=== PATIENT | male | born 1970 | race American Indian/Alaskan Native ===

== ENCOUNTER 2016-12-12 08:18 | Emergency (ER) | payer OTHER ==
[2016-12-12 09:55] LABS: Anion Gap 20 mmol/L; Blood Urea Nitrogen 9 mg/dL (9-20); Calcium 9.2 mg/dL (8.4-10.2); Carbon Dioxide 26 mmol/L (22-30); Chloride 98.3 mmol/L (98-107); Glucose 97 mg/dL (75-100); Potassium 3.8 mmol/L (3.6-5.0); Sodium 140 mmol/L (137-145)
[2016-12-12 10:00] LABS: Basophils % (Auto) 0.6 % (0.0-1.8); Eosinophils % (Auto) 3.8 % (0.0-4.3); Hematocrit 47.9 % (35.5-45.6); Mean Corpuscular HGB Conc 33 % (32-34); Mean Corpuscular Hemoglobin 34 pg (28-32); Mean Corpuscular Volume 102 fl (84-94); Platelet Count 201 K/mm3 (140-440); Red Blood Count 4.71 M/mm3 (3.65-5.03); Red Cell Distribution Width 13.9 % (13.2-15.2); White Blood Count 7.7 K/mm3 (4.5-11.0)
[2016-12-12] MEDS ORDERED: NORMODYNE IV ONE ×2 (11:42→12:35)
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
--- NOTE | 2016-12-12 12:44 | XRay Report ---
CERVICAL SPINE, 3 views: History: Neck pain. Findings: The vertebral bodies, disk spaces, posterior elements and prevertebral soft tissues are unremarkable. Mild to moderate degenerative disc disease is noted at C4-5 and C5-6. The dens is intact. No acute fracture or malalignment is identified. Impression: 1. No evidence for acute injury to the cervical spine.
--- NOTE | 2016-12-12 12:45 | XRay Report ---
LUMBOSACRAL SPINE, 3 VIEWS: History: Back pain Findings: The vertebral bodies, disk spaces and posterior elements are intact. No compression deformity or malalignment. The SI joints are symmetric and unremarkable. Impression: 1. No evidence for acute injury to the lumbar spine.
[2016-12-12] MEDS ORDERED: APRESOLINE IV ONE (13:15)
[2016-12-12] MEDS ORDERED: ATIVAN ONE (14:05)
[2016-12-12] MEDS ORDERED: ATIVAN IV ONE (14:08)
[2016-12-12 14:19] VITALS: BP 148/96
== END 2016-12-12 14:35 | disposition home or self-care (01) ==
LOC: ED 08:18
DX: I10 Essential (primary) hypertension (principal); M54.2 Cervicalgia; M54.5 Low back pain; Z91.14 Patient's other noncompliance with medication regimen; F17.200 Nicotine dependence, unspecified, uncomplicated; V87.7XXA Person injured in collision between other specified motor vehicles (traffic), initial encounter; Y93.89 Activity, other specified; Y99.9 Unspecified external cause status; Y92.410 Unspecified street and highway as the place of occurrence of the external cause
CPT/HCPCS: 36415; 72040; 72100; 80048; 85025; 96374; 96375; 96376; 99284; J0360; J2060

== ENCOUNTER 2017-12-23 14:28 | Emergency (ER) | payer OTHER | END 2017-12-23 14:52 | disposition left against medical advice (07) | LOC: ED 14:28 | DX: R10.9 Unspecified abdominal pain (principal); Z53.21 Procedure and treatment not carried out due to patient leaving prior to being seen by health care provider ==

== ENCOUNTER 2017-12-23 18:41 | Inpatient (IN) | payer OTHER ==
[2017-12-23 19:56] LABS: Basophils # (Auto) 0.1 K/mm3 (0.0-0.1); Basophils % (Auto) 0.6 % (0.0-1.8); Hematocrit 50.8 % (35.5-45.6); Hemoglobin 16.9 gm/dl (11.8-15.2); Lymphocytes # (Auto) 2.3 K/mm3 (1.2-5.4); Lymphocytes % (Auto) 14.1 % (13.4-35.0); Mean Corpuscular HGB Conc 33 % (32-34); Mean Corpuscular Hemoglobin 34 pg (28-32); Mean Corpuscular Volume 101 fl (84-94); Monocytes # (Auto) 0.6 K/mm3 (0.0-0.8); Monocytes % (Auto) 3.8 % (0.0-7.3); Platelet Count 316 K/mm3 (140-440); Red Blood Count 5.02 M/mm3 (3.65-5.03); Red Cell Distribution Width 14.7 % (13.2-15.2)
[2017-12-23 20:20] LABS: Alanine Aminotransferase 35 units/L (7-56); Albumin 4.4 g/dL (3.9-5); BUN/Creatinine Ratio 10; Blood Urea Nitrogen 10 mg/dL (9-20); Calcium 8.8 mg/dL (8.4-10.2); Hemolysis Index 6
[2017-12-23 20:30] LABS: Lipase 454 units/L (13-60)
[2017-12-24] MEDS ORDERED: MORPHINE IV ONE (08:39)
[2017-12-24] MEDS ORDERED: ZOFRAN IV ONE (08:39)
[2017-12-24] MEDS ORDERED: NACL 0.9% 1000 ML 1,000 ML IV ONE (08:39)
--- NOTE | 2017-12-24 08:54 | Emergency Department Report ---
ED Abdominal Pain HPI - General Chief Complaint: Abdominal Pain Stated Complaint: ABDOMINAL PAIN Time Seen by Provider: 12/24/17 08:37 Source: patient Mode of arrival: Ambulatory Limitations: No Limitations - History of Present Illness Initial Comments: Mr. Viramontes is a healthy 47-year-old male with history of alcohol abuse and hypertension presents with severe epigastric pain for 2 days. No previous history of pancreatitis. Gradual onset of pain. Mr. Viramontes has drink alcohol daily for several years. He drinks beer and 1 pint of liquor daily. He does get the shakes if he does not have a drink. MD Complaint: abdominal pain -: days(s) (2) Location: epigastric Radiation: none Severity: severe Severity scale (0 -10): 10 Quality: cramping, sharp, burning Consistency: constant Improves With: nothing Worsens With: nothing Associated Symptoms: nausea - Related Data Previous Rx's Medication Instructions Recorded Last Taken Type amLODIPine [Norvasc] 5 mg PO DAILY #30 tab 12/12/16 Unknown Rx Allergies Allergy/AdvReac Type Severity Reaction Status Date / Time No Known Allergies Allergy Unverified 01/17/15 10:11 ED Review of Systems ROS: Stated complaint: ABDOMINAL PAIN Other details as noted in HPI Comment: All other systems reviewed and negative Constitutional: malaise. denies: fever Respiratory: denies: cough Cardiovascular: denies: chest pain ED Past Medical Hx - Past Medical History Hx Hypertension: Yes - Surgical History Additional Surgical History: Hernia 2012 - Social History Smoking Status: Current Every Day Smoker Substance Use Type: Alcohol - Medications Home Medications: Home Medications Medication Instructions Recorded Confirmed Last Taken Type amLODIPine [Norvasc] 5 mg PO DAILY #30 tab 12/12/16 Unknown Rx ED Physical Exam - General Limitations: No Limitations General appearance: alert, in no apparent distress, other (slight tremor in upper extremities ) - Head Head exam: Present: atraumatic, normocephalic - Eye Eye exam: Present: normal appearance - ENT ENT exam: Present: mucous membranes moist - Neck Neck exam: Present: normal inspection - Respiratory Respiratory exam: Present: normal lung sounds bilaterally. Absent: respiratory distress, wheezes, rales, rhonchi - Cardiovascular Cardiovascular Exam: Present: regular rate, normal rhythm, normal heart sounds. Absent: systolic murmur, diastolic murmur, rubs, gallop - GI/Abdominal GI/Abdominal exam: Present: soft, tenderness (epigastric), normal bowel sounds. Absent: distended, guarding, rebound - Rectal Rectal exam: Present: deferred - Extremities Exam Extremities exam: Present: normal inspection - Back Exam Back exam: Present: normal inspection - Neurological Exam Neurological exam: Present: alert, oriented X3 - Psychiatric Psychiatric exam: Present: normal affect, normal mood - Skin Skin exam: Present: warm, dry, intact, normal color. Absent: rash ED Course Vital Signs 12/23/17 19:18 Temperature 98.3 F Pulse Rate 88 Respiratory 18 Rate Blood Pressure 152/93 O2 Sat by Pulse 96 Oximetry ED Medical Decision Making - Lab Data Result diagrams: 12/23/17 19:27 12/23/17 19:27 Laboratory Results - last 24 hr 12/23/17 12/23/17 19:27 19:27 WBC 16.0 H RBC 5.02 Hgb 16.9 H Hct 50.8 H MCV 101 H MCH 34 H MCHC 33 RDW 14.7 Plt Count 316 Lymph % (Auto) 14.1 [place] % (Auto) 3.8 Eos % (Auto) 0.0 Baso % (Auto) 0.6 Lymph # 2.3 [place] # 0.6 Eos # 0.0 Baso # 0.1 Seg Neutrophils % 81.5 H Seg Neutrophils # 13.1 H Sodium 145 Potassium 3.7 Chloride 96.9 L Carbon Dioxide 22 Anion Gap 30 BUN 10 Creatinine 1.0 Estimated GFR > 60 BUN/Creatinine Ratio 10 Glucose 78 Calcium 8.8 Total Bilirubin 0.20 AST 41 H ALT 35 Alkaline Phosphatase 90 Total Protein 8.1 Albumin 4.4 Albumin/Globulin Ratio 1.2 Lipase 454 H Vital Signs - 24 hr 12/23/17 19:18 Temperature 98.3 F Pulse Rate 88 Respiratory 18 Rate Blood Pressure 152/93 O2 Sat by Pulse 96 Oximetry - Medical Decision Making Mr. Viramontes will be admitted for alcohol pancreatitis to the hospitalist service Critical care attestation.: If time is entered above; I have spent that time in minutes in the direct care of this critically ill patient, excluding procedure time. ED Disposition Clinical Impression: Acute alcoholic pancreatitis, Acute epigastric pain Disposition: OP ADMIT IP TO THIS HOSP Is pt being admited?: Yes Does the pt Need Aspirin: No Condition: Stable Time of Disposition: 08:54
[2017-12-24] MEDS ORDERED: CATAPRES PO ONE (09:20)
--- NOTE | 2017-12-24 09:25 | Progress Note ---
Hospitalist Physical - Constitutional Vitals: Temp Pulse Resp BP Pulse Ox 98.3 F 94 H 20 188/118 95 12/23/17 19:18 12/24/17 09:15 12/24/17 09:15 12/24/17 09:15 12/24/17 09:15 Results - Labs CBC & Chem 7: 12/23/17 19:27 12/23/17 19:27 Labs: Laboratory Last Values WBC 16.0 K/mm3 (4.5-11.0) H 12/23/17 19: RBC 5.02 M/mm3 (3.65-5.03) 12/23/17 19: Hgb 16.9 gm/dl (11.8-15.2) H 12/23/17: Hct 50.8 % (35.5-45.6) H 12/23/17: MCV 101 fl (84-94) H 12/23/17 19: MCH 34 pg (28-32) H 12/23/17: MCHC 33 % (32-34) 12/23/17 19: RDW 14.7 % (13.2-15.2) 12/23/17 19: Plt Count 316 K/mm3 (140-440) 12/23/17 19: Lymph % (Auto) 14.1 % (13.4-35.0) 12/23/17 19: [place] % (Auto) 3.8 % (0.0-7.3) 12/23/17: Eos % (Auto) 0.0 % (0.0-4.3) 12/23/17: Baso % (Auto) 0.6 % (0.0-1.8) 12/23/17 19: Lymph # 2.3 K/mm3 (1.2-5.4) 12/23/17 19: [place] # 0.6 K/mm3 (0.0-0.8) 12/23/17 19: Eos # 0.0 K/mm3 (0.0-0.4) 12/23/17 19: Baso # 0.1 K/mm3 (0.0-0.1) 12/23/17 19: Seg Neutrophils % 81.5 % (40.0-70.0) H 12/23/17 19:27 Seg Neutrophils # 13.1 K/mm3 (1.8-7.7) H 12/23/17 19:27 Sodium 145 mmol/L (137-145) 12/23/17 19:27 Potassium 3.7 mmol/L (3.6-5.0) 12/23/17 19:27 Chloride 96.9 mmol/L (98-107) L 12/23/17 19:27 Carbon Dioxide 22 mmol/L (22-30) 12/23/17 19:27 Anion Gap 30 mmol/L 12/23/17 19:27 BUN 10 mg/dL (9-20) 12/23/17 19:27 Creatinine 1.0 mg/dL (0.8-1.5) 12/23/17 19:27 Estimated GFR > 60 ml/min 12/23/17 19:27 BUN/Creatinine Ratio 10 % 12/23/17 19:27 Glucose 78 mg/dL (75-100) 12/23/17 19:27 Calcium 8.8 mg/dL (8.4-10.2) 12/23/17 19:27 Total Bilirubin 0.20 mg/dL (0.1-1.2) 12/23/17 19:27 AST 41 units/L (5-40) H 12/23/17 19:27 ALT 35 units/L (7-56) 12/23/17 19:27 Alkaline Phosphatase 90 units/L (35-129) 12/23/17 19:27 Total Protein 8.1 g/dL (6.3-8.2) 12/23/17 19:27 Albumin 4.4 g/dL (3.9-5) 12/23/17 19:27 Albumin/Globulin Ratio 1.2 % 12/23/17 19:27 Lipase 454 units/L (13-60) H 12/23/17 19:27
[2017-12-24] MEDS ORDERED: SODIUM CHLORIDE FLUSH SYRINGE 10 ML IV PRN (09:45)
[2017-12-24] MEDS ORDERED: ZOFRAN IV PRN (09:45)
[2017-12-24] MEDS ORDERED: TYLENOL PO PRN (09:45)
--- NOTE | 2017-12-24 09:45 | History and Physical Report ---
History of Present Illness Date of examination: 12/24/17 Date of admission: 12/24/17 Chief complaint: Abdominal pain History of present illness: Patient is 47 yo with history of hypertension, hyperlipidemia,alcohol abuse. He presents with abdominal pain, nausea, tremors. Abdominal pain is 10/10, dull pain, located in mid and upper abdomen. Pain does not radiate. Abdominal pain worse on eating food. he also complains of nausea, but no vomiting. Patient drinks hard liquor everyday and last drink 2 days ago. he states he has been having tremors now for 1 day. In Emergency room he is diagnosed with hypertensive urgency, acute pancreatitis due to alcohol and alcohol withdrawal syndrome. Will admit to Telemetry. Past History Past Medical History: hypertension, hyperlipidemia Past Surgical History: hernia repair Social history: , lives with family, smoking (1 pack cigarettes a day), alcohol abuse (heavy alcohol use daily), full code Family history: diabetes, hypertension Medications and Allergies Allergies Allergy/AdvReac Type Severity Reaction Status Date / Time No Known Allergies Allergy Unverified 01/17/15 10:11 Home Medications Medication Instructions Recorded Confirmed Last Taken Type No Known Home Medications [No 12/24/17 12/24/17 Unknown History Reported Home Medications] Review of Systems All systems: negative (No fever) Exam - Physical Exam Narrative exam: Gen appearance: Not in acute distress, lying in bed, HEENT:Normocephalic, atraumatic Neck:supple, no JVD Lungs: Clear to auscultation bilaterally, no crackles , no wheeze Heart: S1 and S2 regular, no murmurs, rubs or gallop Abdomen: soft, mild tender epigastric and paraumbilical, normal bowel sounds Ext: No edema, no clubbing, no cyanosis. Neuro: Awake, alert, oriented x 3. tremors both hands, moves all ext Psych:Normal mood - Constitutional Vitals: Temp Pulse Resp BP Pulse Ox 98.3 F 108 H 20 188/103 95 12/23/17 19:18 12/24/17 09:32 12/24/17 09:15 12/24/17 09:32 12/24/17 09:15 Results - Labs CBC & Chem 7: 12/25/17 04:12 12/25/17 04:12 Labs: Abnormal lab results 04/01/18 04/01/18 Range/Units 19:27 19:27 WBC 16.0 H (4.5-11.0) K/mm3 Hgb 16.9 H (11.8-15.2) gm/dl Hct 50.8 H (35.5-45.6) % MCV 101 H (84-94) fl MCH 34 H (28-32) pg Seg Neutrophils % 81.5 H (40.0-70.0) % Seg Neutrophils # 13.1 H (1.8-7.7) K/mm3 Chloride 96.9 L (98-107) mmol/L AST 41 H (5-40) units/L Lipase 454 H (13-60) units/L Assessment and Plan Acute alcoholic pancreatitis. Admit to Telemetry. NPO iv Fluids Lipase level 454. Repeat in am CT Abd ordered, pending Alocohol withdrawal syndrome. [facility] protocol Metoprolol iv Q 6h Alcohol abuse and dependence. Hypertensive urgency. Clonidine 0.2 mg po now. Metoprolol iv q 6h. May start oral meds tomorrow if pancreatitis improved. Patient admits to be non compliant, and has not taken anti-hypertensive in yrs, Hyperlipidemia. Recheck Medical non compliance. has not taken antihypertensives or statins in many years. I discussed with him the importance of taking his meedications DVT prophylaxis with Heparin Full code status
[2017-12-24] MEDS ORDERED: HALDOL IV PRN (09:47)
[2017-12-24] MEDS ORDERED: ATIVAN IV PRN ×2 (09:47)
--- NOTE | 2017-12-24 10:28 | Cat Scan Report ---
CT ABDOMEN PELVIS WITH CONTRAST: HISTORY: Abdominal pain, elevated lipase, leukocytosis. COMPARISON: none. TECHNIQUE: Helical CT in 1.25mm intervals following IV contrast. Sagittal and coronal reconstructions. FINDINGS: Lung bases: Normal. Liver: Normal. Biliary system: Normal. Pancreas: The pancreas is edematous but no evidence for abnormal enhancement, mass or cyst. Spleen: Normal. Kidneys/ureters/bladder: Normal. Adrenal glands: Normal. Aorta: Normal. Intestines: Unremarkable given no oral contrast was administered. Appendix: Normal. Pelvic viscera: Normal. Ascites: There is moderate ascites surrounding the pancreatic bed and within the pelvis. Adenopathy: None. Musculoskeletal: Normal. IMPRESSION: Findings consistent with acute pancreatitis.
[2017-12-24] MEDS: SODIUM CHLORIDE FLUSH SYRINGE 10 ML IV SCH ×2 (10:53→22:33)
[2017-12-24] MEDS: ATIVAN IV PRN (10:54)
[2017-12-24] MEDS: MORPHINE IV PRN ×3 (10:55→22:35)
[2017-12-24] MEDS: D5/0.45NS 1,000 ML IV SCH ×2 (10:56→22:33)
[2017-12-24] MEDS ORDERED: LOPRESSOR IV SCH (12:00)
[2017-12-24] MEDS ORDERED: MAGNESIUM SULFATE 3 GM in NACL 0.9% 100 ML IV ONE (12:00)
[2017-12-24 16:11] LABS: Bilirubin,Urine NEG (Negative); Blood,Urine MOD (Negative); Color,Urine Yellow (Yellow); Mucus,Urine FEW /HPF; Urobilinogen,Urine < 2.0 mg/dL (<2.0)
[2017-12-24 16:20] LABS: Amphetamine Screen,Urine PRESUMPTIVE NEGATIVE; Benzodiazepines Screen,Urine PRESUMPTIVE NEGATIVE; Cannabinoid Screen,Urine PRESUMPTIVE NEGATIVE; Methadone Screen,Urine PRESUMPTIVE NEGATIVE
[2017-12-24 16:34] LABS: Cocaine Screen,Urine PRESUMPTIVE POSITIVE; Opiate Screen,Urine PRESUMPTIVE POSITIVE
[2017-12-24] MEDS: LOPRESSOR IV SCH ×2 (17:05→22:33)
[2017-12-25] MEDS: ATIVAN IV PRN ×2 (02:18→05:29)
[2017-12-25 04:57] LABS: Basophils % (Auto) 0.1 % (0.0-1.8); Eosinophils # (Auto) 0.1 K/mm3 (0.0-0.4); Eosinophils % (Auto) 0.5 % (0.0-4.3); Hematocrit 45.4 % (35.5-45.6); Hemoglobin 15.6 gm/dl (11.8-15.2); Lymphocytes # (Auto) 0.9 K/mm3 (1.2-5.4); Lymphocytes % (Auto) 7.8 % (13.4-35.0); Mean Corpuscular HGB Conc 34 % (32-34); Mean Corpuscular Hemoglobin 34 pg (28-32); Mean Corpuscular Volume 99 fl (84-94); Monocytes # (Auto) 0.6 K/mm3 (0.0-0.8); Monocytes % (Auto) 4.7 % (0.0-7.3); Platelet Count 182 K/mm3 (140-440); Red Blood Count 4.57 M/mm3 (3.65-5.03); Red Cell Distribution Width 14.2 % (13.2-15.2)
[2017-12-25 05:04] LABS: BUN/Creatinine Ratio 10; Blood Urea Nitrogen 8 mg/dL (9-20); Calcium 8.5 mg/dL (8.4-10.2); Hemolysis Index 37
[2017-12-25 05:13] LABS: Lipase 259 units/L (13-60)
[2017-12-25] MEDS: LOPRESSOR IV SCH (05:29)
[2017-12-25] MEDS ORDERED: APRESOLINE IV PRN (05:34)
[2017-12-25] MEDS: VITAMIN B-1 100 MG in NACL 0.9% 50 ML IV SCH (11:00)
[2017-12-25] MEDS: FOLVITE 1 MG in NACL 0.9% 50 ML IV SCH (11:00)
[2017-12-25] MEDS: SODIUM CHLORIDE FLUSH SYRINGE 10 ML IV SCH ×2 (11:00→22:56)
[2017-12-25] MEDS: MORPHINE IV PRN ×2 (11:52→20:45)
[2017-12-25] MEDS: D5/0.45NS 1,000 ML IV SCH (14:18)
[2017-12-25] MEDS: HEPARIN SUB-Q SCH ×2 (14:18→22:55)
[2017-12-25] MEDS ORDERED: CATAPRES PO PRN (14:49)
--- NOTE | 2017-12-25 14:52 | Progress Note ---
Assessment and Plan Acute alcoholic pancreatitis. Lipase level was elevated to 454. CT Abd ordered and persistent with pancreatitis, Continue IV fluid hydration, start on clear liquid diet Trend lipase /Alocohol withdrawal syndrome. Continue CIWA protocol Placed on Metoprolol iv Q 6h on admission will place on clonidine by mouth q8h, stop metoprolol /Alcohol abuse and dependence. Counseled for cessation /Hypertensive urgency. Adjust medications as needed Required IV metoprolol on admission Continue clonidine for now /Hyperlipidemia. place on statin Medical non compliance. has not taken antihypertensives or statins in many years. discussed with him the importance of taking his me in dications DVT prophylaxis with Heparin Full code status Brief history: 47-year-old -[place] male with history of alcohol abuse presented with diffuse epigastric abdominal pain nausea and vomiting. Radiological test: CT scan of the abdomen and pelvis with contrast: Findings consistent with acute pancreatitis. Hospitalist Physical exam: GENERAL: well-developed and well-nourished -[place] male lying on bed appeared to be in no discomfort. HEENT: Normocephalic. Atraumatic. No conjunctival congestion or icterus. Patient has moist mucous membranes. NECK: Supple. Trachea midline. CHEST/LUNGS: Clear to auscultated bilaterally, breathing nonlabored. No wheezes crackles or rhonchi. HEART/CARDIOVASCULAR: Regular in rate and rhythm. S1 and S2 positive. ABDOMEN: Abdomen is soft, + epigastric tenderness. Patient has normal bowel sounds. SKIN: There is no rash. Warm and dry. NEURO: No focal motor deficit. Follows command. MUSCULOSKELETAL: No joint effusion or tenderness. EXTRIMITY: No edema, no cyanosis or clubbing. PSYCH: Cooperative. Subjective Date of service: 12/25/17 Interval history: Patient seen and examined. Medical records and medication list reviewed. No acute event overnight noted by the RN. Patient denies any chest pain or difficulty breathing. Patient is tolerating clear liquid diet. Still has significant epigastric pain but no nausea vomiting Discussed plan of care at bedside with patient. Objective - Constitutional Vitals: Vital Signs - 12hr 12/25/17 12/25/17 12/25/17 05:21 05:29 07:50 Temperature 99.1 F 98.7 F Pulse Rate 100 H 100 H 98 H Respiratory 20 18 Rate Blood Pressure 157/106 Blood Pressure 151/106 141/99 [Right] O2 Sat by Pulse 96 96 Oximetry 12/25/17 10:00 Temperature Pulse Rate 96 H Respiratory Rate Blood Pressure Blood Pressure [Right] O2 Sat by Pulse Oximetry - Labs CBC & Chem 7: 12/26/17 08:07 12/25/17 04:12 Labs: Abnormal lab results 12/23/17 12/25/17 12/25/17 Range/Units 15:46 04:12 04:12 WBC 12.0 H (4.5-11.0) K/mm3 Hgb 15.6 H (11.8-15.2) gm/dl MCV 99 H (84-94) fl MCH 34 H (28-32) pg Lymph % (Auto) 7.8 L (13.4-35.0) % Lymph # 0.9 L (1.2-5.4) K/mm3 Seg Neutrophils % 86.9 H (40.0-70.0) % Seg Neutrophils # 10.4 H (1.8-7.7) K/mm3 Sodium 134 L D (137-145) mmol/L Chloride 94.4 L (98-107) mmol/L BUN 8 L (9-20) mg/dL Glucose 116 H (75-100) mg/dL Lipase 259 H (13-60) units/L Ur Specific [place] > 1.059 H (1.003-1.030)
[2017-12-26] MEDS: D5/0.45NS 1,000 ML IV SCH ×2 (03:22→18:54)
[2017-12-26 08:35] LABS: Basophils % (Auto) 0.3 % (0.0-1.8); Eosinophils # (Auto) 0.1 K/mm3 (0.0-0.4); Eosinophils % (Auto) 1.2 % (0.0-4.3); Hematocrit 42.1 % (35.5-45.6); Hemoglobin 14.3 gm/dl (11.8-15.2); Lymphocytes # (Auto) 0.9 K/mm3 (1.2-5.4); Lymphocytes % (Auto) 10.4 % (13.4-35.0); Mean Corpuscular HGB Conc 34 % (32-34); Mean Corpuscular Hemoglobin 34 pg (28-32); Mean Corpuscular Volume 100 fl (84-94); Monocytes # (Auto) 0.6 K/mm3 (0.0-0.8); Monocytes % (Auto) 7.2 % (0.0-7.3); Platelet Count 158 K/mm3 (140-440); Red Blood Count 4.21 M/mm3 (3.65-5.03)
[2017-12-26] MEDS: HEPARIN SUB-Q SCH ×3 (09:53→21:49)
[2017-12-26] MEDS ORDERED: ROCEPHIN/NS 1 GM/50 ML 1 GM/50 ML BAG IV SCH (10:00)
[2017-12-26] MEDS: FOLVITE 1 MG in NACL 0.9% 50 ML IV SCH (10:20)
[2017-12-26] MEDS: VITAMIN B-1 100 MG in NACL 0.9% 50 ML IV SCH (11:10)
[2017-12-26] MEDS: cefTRIAXone 1 GM in NACL 0.9% 20 ML IV SCH (11:12)
[2017-12-26] MEDS: SODIUM CHLORIDE FLUSH SYRINGE 10 ML IV SCH ×2 (11:13→21:53)
[2017-12-26] MEDS ORDERED: PERCOCET 5/325 PO PRN (17:36)
--- NOTE | 2017-12-26 17:36 | Progress Note ---
Assessment and Plan /Acute alcoholic pancreatitis. Lipase level was elevated to 454. CT Abd ordered and persistent with pancreatitis, Continue IV fluid hydration, start on clear liquid diet Trend lipase /Alocohol withdrawal syndrome. Continue CIWA protocol Placed on Metoprolol iv Q 6h on admission will place on clonidine by mouth q8h, stop metoprolol /SIRS likely from acute pancreatitis, obtain blood cx, place on empiric abx for possible underlying infection /Alcohol abuse and dependence. Counseled for cessation /Hypertensive urgency. Adjust medications as needed Required IV metoprolol on admission Continue clonidine for now /Hyperlipidemia. place on statin Medical non compliance. has not taken antihypertensives or statins in many years. discussed with him the importance of taking his medications DVT prophylaxis with Heparin Full code status Brief history: 47-year-old -[place] male with history of alcohol abuse presented with diffuse epigastric abdominal pain nausea and vomiting. Radiological test: CT scan of the abdomen and pelvis with contrast: Findings consistent with acute pancreatitis. Hospitalist Physical exam: GENERAL: well-developed and well-nourished -[place] male lying on bed appeared to be in no discomfort. HEENT: Normocephalic. Atraumatic. No conjunctival congestion or icterus. Patient has moist mucous membranes. NECK: Supple. Trachea midline. CHEST/LUNGS: Clear to auscultated bilaterally, breathing nonlabored. No wheezes crackles or rhonchi. HEART/CARDIOVASCULAR: Regular in rate and rhythm. S1 and S2 positive. ABDOMEN: Abdomen is soft, + epigastric tenderness. Patient has normal bowel sounds. SKIN: There is no rash. Warm and dry. NEURO: No focal motor deficit. Follows command. MUSCULOSKELETAL: No joint effusion or tenderness. EXTRIMITY: No edema, no cyanosis or clubbing. PSYCH: Cooperative. Subjective Date of service: 12/26/17 Interval history: Patient seen and examined. Medical records and medication list reviewed. No acute event overnight noted by the RN. Patient denies any chest pain or difficulty breathing. Patient is tolerating clear liquid diet. Still has significant epigastric pain but no nausea vomiting, spiking fever Discussed plan of care at bedside with patient. Objective - Constitutional Vitals: Vital Signs - 12hr 12/26/17 12/26/17 12/26/17 07:44 10:21 11:46 Temperature 100.2 F H 99.7 F H Pulse Rate 89 104 H Respiratory 16 20 Rate Blood Pressure 164/110 Blood Pressure 164/110 120/82 [Right] O2 Sat by Pulse 95 95 Oximetry 12/26/17 14:24 Temperature 100.2 F H Pulse Rate 104 H Respiratory 18 Rate Blood Pressure Blood Pressure 144/93 [Right] O2 Sat by Pulse 97 Oximetry - Labs CBC & Chem 7: 12/26/17 08:07 12/25/17 04:12 Labs: Abnormal lab results 12/26/17 12/26/17 Range/Units 08:07 08:07 MCV 100 H (84-94) fl MCH 34 H (28-32) pg Lymph % (Auto) 10.4 L (13.4-35.0) % Lymph # 0.9 L (1.2-5.4) K/mm3 Seg Neutrophils % 80.9 H (40.0-70.0) % Lipase 95 H (13-60) units/L
[2017-12-27] MEDS: HEPARIN SUB-Q SCH (06:32)
[2017-12-27] MEDS ORDERED: VITAMIN B-1 PO SCH (10:00)
[2017-12-27] MEDS ORDERED: FOLVITE PO SCH (10:00)
[2017-12-27] MEDS: cefTRIAXone 1 GM in NACL 0.9% 20 ML IV SCH (10:31)
[2017-12-27] MEDS: SODIUM CHLORIDE FLUSH SYRINGE 10 ML IV SCH (10:34)
[2017-12-27] MEDS: D5/0.45NS 1,000 ML IV SCH (10:56)
--- NOTE | 2017-12-27 14:30 | Discharge Summary ---
Providers - Providers Date of Admission: 12/24/17 09:50 Date of discharge: 12/27/17 Attending physician: LALI CHEN Primary care physician: ELLEN WAN Hospitalization Condition: Stable Hospital course: Brief history: 47-year-old -[place] male with history of alcohol abuse presented with diffuse epigastric abdominal pain nausea and vomiting. His CT scan of the abdomen and pelvis with contrast was consistent with acute pancreatitis, patient also had elevated lipase of 454. He was admitted for further evaluation and management. He was placed on aggressive IV fluid hydration given as needed pain and mild nausea medications IV, his diet was advanced as tolerated. Patient was placed on empiric antibiotic and the blood culture were obtained for isolated fever episode. His fever subsided no growth from the blood culture. He denied any cough, any urgency, dysuria or increased frequency of urination. His blood pressure was uncontrolled on admission and required IV metoprolol. Then he was placed on by mouth clonidine as that'll control his blood pressure also help him with alcohol withdrawal symptom. He improved clinically, blood pressure was stabilized, tolerating diet, abdominal pain resolved, did not have any nausea and vomiting. He was then discharged home in stable condition. He was counseled for alcohol cessation and outpatient alcohol rehabilitation follow-up. He was also counseled for medication compliance for hypertension. Discharge Diagnosis and management: /Acute alcoholic pancreatitis. Lipase level was elevated to 454. CT Abd ordered and was consistent with pancreatitis, He was placed on aggressive IV fluid hydration, advanced diet as tolerated Given IV morphine/Dilaudid for abdominal pain as needed, Trended lipase His symptom improved clinically before discharge /Alocohol withdrawal syndrome. Placed on CIWA protocol Also placed on clonidine by mouth q8h Also placed on folate and thiamine /SIRS likely from acute pancreatitis, obtained blood cx, place on empiric abx for possible underlying infection His blood culture was negative and fever subsided Antibiotic discontinued on discharge /Alcohol abuse and dependence. Counseled for cessation /Hypertensive urgency. Adjust medications as needed Required IV metoprolol on admission Blood pressure was much stable on discharge /Hyperlipidemia. place on statin Medical non compliance. has not taken antihypertensives or statins in many years. discussed with him the importance of taking his medications Substance abuse, UDS was positive for cocaine, but patient denied. he was counseled for drug abuse. DVT prophylaxis with Heparin Full code status Radiological test: CT scan of the abdomen and pelvis with contrast: Findings consistent with acute pancreatitis. Hospitalist Physical exam: GENERAL: well-developed and well-nourished -[place] male lying on bed appeared to be in no discomfort. HEENT: Normocephalic. Atraumatic. No conjunctival congestion or icterus. Patient has moist mucous membranes. NECK: Supple. Trachea midline. CHEST/LUNGS: Clear to auscultated bilaterally, breathing nonlabored. No wheezes crackles or rhonchi. HEART/CARDIOVASCULAR: Regular in rate and rhythm. S1 and S2 positive. ABDOMEN: Abdomen is soft, + epigastric tenderness. Patient has normal bowel sounds. SKIN: There is no rash. Warm and dry. NEURO: No focal motor deficit. Follows command. MUSCULOSKELETAL: No joint effusion or tenderness. EXTRIMITY: No edema, no cyanosis or clubbing. PSYCH: Cooperative. Disposition: DC-01 TO HOME OR SELFCARE Time spent for discharge: 32 minutes Core Measure Documentation - Palliative Care Palliative Care/ Comfort Measures: Not Applicable - Core Measures Any of the following diagnoses?: none Exam - Constitutional Vitals: Temp Pulse Resp BP Pulse Ox 98.5 F 86 18 148/95 92 12/27/17 07:53 12/27/17 07:53 12/27/17 07:53 12/27/17 07:53 12/27/17 07:53 Plan Activity: advance as tolerated Weight Bearing Status: Weight Bear as Tolerated Diet: low fat, low cholesterol Follow up with: ELLEN WAN MD [Primary Care Provider] - 7 Days Prescriptions: AtorvaSTATin [Lipitor] 40 mg PO QHS #30 tablet Aspirin EC [Aspirin Enteric Coated TAB] 81 mg PO QDAY #30 tablet. Folic Acid [Folvite] 1 mg PO DAILY #30 tablet Metoprolol [Lopressor TAB] 25 mg PO BID #60 tablet Thiamine [Vitamin B-1] 100 mg PO QDAY #14 tablet
[2017-12-27 15:54] VITALS: BP 151/104
== END 2017-12-27 16:35 | disposition home or self-care (01) | DRG 439 ==
LOC: ED 18:41 → 4A 12-24 09:50 → 3A 12-25 17:40
PROVIDERS: ADMIT Internal Medicine; ATTEND Internal Medicine
DX: K85.20 Alcohol induced acute pancreatitis without necrosis or infection (principal); F10.239 Alcohol dependence with withdrawal, unspecified; R65.10 Systemic inflammatory response syndrome (SIRS) of non-infectious origin without acute organ dysfunction; R10.13 Epigastric pain; I16.0 Hypertensive urgency; E78.5 Hyperlipidemia, unspecified; F19.10 Other psychoactive substance abuse, uncomplicated; I10 Essential (primary) hypertension; F17.200 Nicotine dependence, unspecified, uncomplicated; Z82.49 Family history of ischemic heart disease and other diseases of the circulatory system; Z83.3 Family history of diabetes mellitus; Z71.41 Alcohol abuse counseling and surveillance of alcoholic; Z91.14 Patient's other noncompliance with medication regimen
CPT/HCPCS: 36415; 74177; 80048; 80053; 80307; 80320; 81001; 83690; 83735; 84100; 85025; 87040; 96365; 96366; 96375; 96376; A9270-GY; G0480; J0360; J0696; J1644; J2060; J2270; J2405; J3411; J3475; J7030; Q9967